=== PATIENT | male | born 1970 | race Caucasian/White ===

== ENCOUNTER 2018-11-15 09:37 | Emergency (ER) | payer BC ==
[2018-11-15 10:20] LABS: BASOPHILS % (AUTO) 0.4 % (0.0-5.0); EOSINOPHILS % (AUTO) 0.8 % (0.0-8.0); HEMATOCRIT 43.5 % (42-54); LYMPHOCYTES % (AUTO) 11.1 % (21.0-51.0); MEAN CORPUSCULAR HEMOGLOBIN 31.1 pg (27.0-33.0); MEAN CORPUSCULAR HGB CONC 33.7 g/dL (32.0-36.0); MEAN CORPUSCULAR VOLUME 92.3 fL (79-99); MONOCYTES % (AUTO) 9.1 % (3.0-13.0); NEUTROPHILS % (AUTO) 78.6 % (40.0-77.0); PLATELET COUNT (AUTO) 254 K/uL (130-400); RED BLOOD CELL COUNT(AUTO) 4.71 MIL/uL (4.50-6.20); RED CELL DISTRIBUTION WIDTH 12.6 % (11.0-15.5); WHITE BLOOD COUNT (AUTO) 11.8 K/uL (4.8-10.8)
[2018-11-15 10:21] LABS: BILIRUBIN,URINE Negative (NEGATIVE); COLOR,URINE Yellow (YELLOW); GLUCOSE, URINE (UA) Negative (NEGATIVE); KETONES,URINE Trace mg/dL (NEGATIVE); LEUKOCYTE ESTERASE ,URINE Negative (NEGATIVE); NITRATE,URINE Negative (NEGATIVE); OCCULT BLOOD,URINE Small (NEGATIVE); PH,URINE 6.5 (5.0-8.0); PROTEIN,URINE Negative (NEGATIVE); UROBILINOGEN,URINE 0.2 mg/dL (0.2-1.0)
[2018-11-15 10:23] LABS: APPEARANCE,URINE HAZY (CLEAR)
[2018-11-15 10:29] LABS: BACTERIA,URINE Rare /HPF (None Seen); MUCUS,URINE Few LPF (None Seen); SQUAMOUS EPITHELIAL CELL,UR Rare /HPF (0-2); WBC,URINE 0-1 /HPF (0-1)
[2018-11-15 10:30] LABS: ALBUMIN 3.8 g/dL (3.5-5.0); BILIRUBIN,TOTAL 1.6 mg/dL (0.2-1.0); TOTAL PROTEIN, SERUM 7.5 g/dL (6.0-8.3)
[2018-11-15] MEDS ORDERED: METRONIDAZOLE 500 MG TABLET ONE (11:18)
[2018-11-15] MEDS ORDERED: ONDANSETRON HCL 4 MG/2 ML VIAL ONE (11:19)
[2018-11-15] MEDS ORDERED: MORPHINE SULFATE 4 MG/1ML SYG ONE (11:19)
[2018-11-15] MEDS ORDERED: AMOXICILLIN/POTASSIUM CLAV 875-125 TABLET PO ONE (11:19)
== END 2018-11-15 12:05 | disposition home or self-care (01) ==
LOC: EDH 09:37
DX: K57.32 Diverticulitis of large intestine without perforation or abscess without bleeding (principal); Z88.1 Allergy status to other antibiotic agents; Z90.49 Acquired absence of other specified parts of digestive tract
CPT/HCPCS: 36415; 74176; 80053; 81001; 85025; 96374; 96375; 99285; J2270; J2405

== ENCOUNTER 2021-06-15 06:20 | Emergency (ER) | payer BC ==
[~2021-06-15] VITALS: Ht 182.9 cm; Wt 77.1 kg
[2021-06-15 07:09] LABS: APPEARANCE,URINE Clear (CLEAR); BILIRUBIN,URINE Negative (NEGATIVE); COLOR,URINE Yellow (YELLOW); GLUCOSE, URINE (UA) Negative (NEGATIVE); KETONES,URINE Negative (NEGATIVE); LEUKOCYTE ESTERASE ,URINE Negative (NEGATIVE); NITRATE,URINE Negative (NEGATIVE); OCCULT BLOOD,URINE Trace (NEGATIVE); PH,URINE 5.5 (5.0-8.0); PROTEIN,URINE Negative (NEGATIVE)
[2021-06-15 07:12] LABS: BASOPHILS % (AUTO) 0.5 % (0.0-5.0); HEMATOCRIT 45.2 % (42-54); LYMPHOCYTES % (AUTO) 13.6 % (21.0-51.0); MEAN CORPUSCULAR HGB CONC 33.4 g/dL (32.0-36.0); MEAN CORPUSCULAR VOLUME 92.8 fL (79-99); MONOCYTES % (AUTO) 9.4 % (3.0-13.0); PLATELET COUNT (AUTO) 255 K/uL (130-400); RED BLOOD CELL COUNT(AUTO) 4.87 MIL/uL (4.50-6.20); WHITE BLOOD COUNT (AUTO) 10.8 K/uL (4.8-10.8)
[2021-06-15 07:22] LABS: ALBUMIN 3.8 g/dL (3.5-5.0); BILIRUBIN,TOTAL 1.3 mg/dL (0.2-1.0); CREATININE 1.1 mg/dL (0.5-1.5); POTASSIUM 3.7 mmol/L (3.5-5.1); TOTAL PROTEIN, SERUM 7.6 g/dL (6.0-8.3)
[2021-06-15 07:27] LABS: BACTERIA,URINE Rare /HPF (None Seen); RBC,URINE 0-1 /HPF (0-1); SQUAMOUS EPITHELIAL CELL,UR Rare /HPF (0-2); WBC,URINE 0-1 /HPF (0-1)
[2021-06-15 07:30] VITALS: BP 125/84
[2021-06-15] MEDS ORDERED: AMOX-426 PO (08:37)
[2021-06-15] MEDS ORDERED: AMOX/CLAV 500/125MG TAB PO SCH (09:00)
[2021-06-15 09:27] VITALS: BP 114/82
[2021-06-15] MEDS ORDERED: PHARMACY COMMUNICATION MISC SCH (09:30)
== END 2021-06-15 09:39 | disposition home or self-care (01) ==
LOC: EDH 06:20
DX: K57.92 Diverticulitis of intestine, part unspecified, without perforation or abscess without bleeding (principal); Z88.1 Allergy status to other antibiotic agents; Z88.2 Allergy status to sulfonamides; Z90.49 Acquired absence of other specified parts of digestive tract
CPT/HCPCS: 36415; 80053; 81001; 83690; 85025; 87088

== ENCOUNTER 2021-06-15 20:41 | Inpatient (IN) | payer BC ==
[~2021-06-15] VITALS: Ht 182.9 cm; Wt 81.0 kg
[~2021-06-15 20:41] MED LIST: AMOX-426 PO
[2021-06-15 21:07] VITALS: BP 145/79
[2021-06-15] MEDS ORDERED: IOHEXOL-350 75 ML VIAL IV ONE (21:26)
[2021-06-15] MEDS ORDERED: ONDANSETRON 4MG INJ IVP ONE (21:30)
[2021-06-15] MEDS ORDERED: PANTOPRAZOLE 40 MG/VIAL IVP ONE (21:30)
[2021-06-15] MEDS ORDERED: ZOSYN 3.375GM +NS 50ML IV ONE (21:30)
[2021-06-15] MEDS ORDERED: MORPHINE 2 MG SYG IVP ONE (21:30)
[2021-06-15] MEDS ORDERED: 0.9%NACL 1000ML 1,000 ML IV ONE ×2 (21:30)
[2021-06-15] MEDS ORDERED: 0.9%NACL 50ML 50 ML IV ONE (21:30)
[2021-06-15 21:39] LABS: BASOPHILS % (AUTO) 0.3 % (0.0-5.0); EOSINOPHILS % (AUTO) 0.2 % (0.0-8.0); HEMATOCRIT 44.2 % (42-54); LYMPHOCYTES % (AUTO) 5.2 % (21.0-51.0); MEAN CORPUSCULAR HEMOGLOBIN 31.6 pg (27.0-33.0); MEAN CORPUSCULAR HGB CONC 33.9 g/dL (32.0-36.0); MEAN CORPUSCULAR VOLUME 93.2 fL (79-99); MONOCYTES % (AUTO) 5.5 % (3.0-13.0); NEUTROPHILS % (AUTO) 88.2 % (40.0-77.0); PLATELET COUNT (AUTO) 235 K/uL (130-400); RED BLOOD CELL COUNT(AUTO) 4.74 MIL/uL (4.50-6.20); RED CELL DISTRIBUTION WIDTH 11.9 % (11.0-15.5)
[2021-06-15 21:55] LABS: ALBUMIN 3.7 g/dL (3.5-5.0); BILIRUBIN,TOTAL 1.3 mg/dL (0.2-1.0); TOTAL PROTEIN, SERUM 7.6 g/dL (6.0-8.3)
[2021-06-15 22:09] VITALS: BP 115/77
[2021-06-15] MEDS ORDERED: NITROGLYCERIN 0.4 MG SL TAB SL PRN (23:00)
[2021-06-15] MEDS ORDERED: MORPHINE 2 MG SYG IV PRN (23:00)
[2021-06-15] MEDS ORDERED: ONDANSETRON 4MG INJ IV PRN (23:00)
[2021-06-15] MEDS ORDERED: MORPHINE 4 MG SYG IV PRN (23:00)
[2021-06-15 23:09] LABS: HEMOGLOBIN A1C 5.5 % (4.0-6.0)
[2021-06-15] MEDS: LACTATED RINGERS 1000ML 1,000 ML IV SCH (23:09)
[2021-06-15 23:55] VITALS: BP 110/72
[2021-06-16] VITALS (8 sets, daily range): BP systolic 94–122; BP diastolic 49–80
[2021-06-16 02:40] LABS: APPEARANCE,URINE Clear (CLEAR); BILIRUBIN,URINE Negative (NEGATIVE); COLOR,URINE Yellow (YELLOW); GLUCOSE, URINE (UA) Negative (NEGATIVE); KETONES,URINE 40 mg/dL (NEGATIVE); LEUKOCYTE ESTERASE ,URINE Negative (NEGATIVE); NITRATE,URINE Negative (NEGATIVE); OCCULT BLOOD,URINE Trace (NEGATIVE); PROTEIN,URINE Negative (NEGATIVE)
[2021-06-16 02:53] LABS: BACTERIA,URINE None Seen /HPF (None Seen); RBC,URINE 0-1 /HPF (0-1); SQUAMOUS EPITHELIAL CELL,UR None Seen /HPF (0-2); WBC,URINE 0-1 /HPF (0-1)
[2021-06-16] MEDS: METRONIDAZOLE 250MG/50ML 50 ML IV SCH ×3 (07:36→22:06)
[2021-06-16] MEDS: FAMOTIDINE 20MG VIAL IV SCH ×2 (09:11→20:15)
[2021-06-16] MEDS: LACTATED RINGERS 1000ML 1,000 ML IV SCH (12:20)
[2021-06-16] MEDS ORDERED: COMPOUND IV MISC 1 EACH IVSOLN MISC PRN (12:30)
[2021-06-17] MEDS: LACTATED RINGERS 1000ML 1,000 ML IV SCH (01:40)
[2021-06-17 03:37] VITALS: BP 110/65
[2021-06-17] MEDS: METRONIDAZOLE 250MG/50ML 50 ML IV SCH ×2 (05:05→15:32)
[2021-06-17 05:28] LABS: BASOPHILS % (AUTO) 0.5 % (0.0-5.0); HEMATOCRIT 39.5 % (42-54); MEAN CORPUSCULAR HEMOGLOBIN 31.1 pg (27.0-33.0); MEAN CORPUSCULAR HGB CONC 33.4 g/dL (32.0-36.0); MEAN CORPUSCULAR VOLUME 93.2 fL (79-99); NEUTROPHILS % (AUTO) 67.1 % (40.0-77.0); PLATELET COUNT (AUTO) 215 K/uL (130-400); RED BLOOD CELL COUNT(AUTO) 4.24 MIL/uL (4.50-6.20); RED CELL DISTRIBUTION WIDTH 11.7 % (11.0-15.5); WHITE BLOOD COUNT (AUTO) 9.2 K/uL (4.8-10.8)
[2021-06-17 05:45] LABS: BILIRUBIN,TOTAL 1.1 mg/dL (0.2-1.0); POTASSIUM 4.1 mmol/L (3.5-5.1); TOTAL PROTEIN, SERUM 6.5 g/dL (6.0-8.3)
[2021-06-17] MEDS ORDERED: CEFEPIME HCL 2 GM VIAL IVP SCH (07:30)
[2021-06-17 08:00] VITALS: BP 121/83
[2021-06-17] MEDS: FAMOTIDINE 20MG VIAL IV SCH (09:08)
[2021-06-17 12:00] VITALS: BP 123/78
[2021-06-17] MEDS ORDERED: METR500T PO (15:03)
[2021-06-17] MEDS ORDERED: LACTULOSE 20 GM/30 ML UDCUP PO ONE (15:30)
[2021-06-17] MEDS ORDERED: LACTULOSE 20 GM/30 ML UDCUP ONE (15:31)
[2021-06-17 16:00] VITALS: BP 126/86
[2021-06-17] MEDS ORDERED: LACT10SO9 PO (18:31)
== END 2021-06-17 19:20 | disposition home or self-care (01) | DRG 392 ==
LOC: EDH 20:41 → OBSVTOIN 22:33 → EDHIP 22:33 → 3BH 06-16 04:22
PROVIDERS: ADMIT Internal Medicine; ATTEND Internal Medicine
DX: K57.92 Diverticulitis of intestine, part unspecified, without perforation or abscess without bleeding (principal); D72.829 Elevated white blood cell count, unspecified; Z20.822 Contact with and (suspected) exposure to COVID-19; Z88.2 Allergy status to sulfonamides; Z88.1 Allergy status to other antibiotic agents; Z88.0 Allergy status to penicillin; Z88.8 Allergy status to other drugs, medicaments and biological substances
CPT/HCPCS: 36415; 74177; 80053; 81001; 82150; 83036; 83605; 83690; 85025; 86140; 87040; 87088; 87635; C9113; C9803; G0378; J2405; J2543; J3490; J7030; J7120; Q9967